=== PATIENT | female | born 1995 | race African-American/Black ===

== ENCOUNTER 2017-08-16 02:12 | Emergency (ER) | payer SELFPAY ==
[~2017-08-16] VITALS: Ht 177.8 cm; Wt 76.0 kg
[2017-08-16 02:15] VITALS: BP 130/77; PULSE 92; RESP 16; TEMP 98.5; O2SAT 100
== END 2017-08-16 04:15 | disposition left against medical advice (07) ==
LOC: NEPE 02:12
DX: O46.90 Antepartum hemorrhage, unspecified, unspecified trimester (principal)
CPT/HCPCS: 99281